=== PATIENT | female | born 1950 ===

== ENCOUNTER 2018-06-13 08:52 | Outpatient (CLI) | payer OTHER ==
[~2018-06-13] VITALS: Ht 160 cm; Wt 70.3 kg
== END 2018-06-13 09:10 | disposition home or self-care (01) ==
LOC: OFIC 805 08:52
DX: R13.19 Other dysphagia (principal); D10.1 Benign neoplasm of tongue

== ENCOUNTER 2018-07-08 12:52 | Emergency (ER) | payer OTHER ==
[~2018-07-08] VITALS: Ht 160 cm; Wt 69.9 kg
[2018-07-08] MEDS ORDERED: JANUMET XR 50-1 EAC1 (14:07)
[2018-07-08] MEDS ORDERED: NORVASC10 MG (14:08)
[2018-07-08] MEDS ORDERED: COREG CR10 MG (14:08)
[2018-07-08] MEDS ORDERED: COZAAR25 MG (14:08)
[2018-07-08] MEDS ORDERED: SYNTHROID175 MCG (14:08)
== END 2018-07-08 17:14 | disposition home or self-care (01) ==
LOC: ER 12:52
DX: G89.18 Other acute postprocedural pain (principal); M54.2 Cervicalgia; R07.0 Pain in throat; F45.42 Pain disorder with related psychological factors

== ENCOUNTER 2018-07-27 08:09 | Outpatient (CLI) | payer OTHER ==
[~2018-07-27] VITALS: Ht 152.4 cm; Wt 70.3 kg
[~2018-07-27 08:09] MED LIST: COREG CR10 MG; COZAAR25 MG; JANUMET XR 50-1 EAC1; NORVASC10 MG; SYNTHROID175 MCG
== END 2018-07-27 08:15 | disposition home or self-care (01) ==
LOC: OFIC 805 08:09
DX: R13.19 Other dysphagia (principal); D10.1 Benign neoplasm of tongue; M54.2 Cervicalgia

== ENCOUNTER 2018-09-16 09:25 | Outpatient (CLI) | payer OTHER ==
[~2018-09-16] VITALS: Ht 152.4 cm; Wt 70.3 kg
== END 2018-09-16 09:45 | disposition home or self-care (01) ==
LOC: OFIC 805 09:25
DX: D10.1 Benign neoplasm of tongue (principal); R13.19 Other dysphagia